=== PATIENT | female | born 1940 | race Caucasian/White ===

== ENCOUNTER 2016-11-28 14:36 | Emergency (ER) ==
[2016-11-28 14:44] VITALS: BP 148/87; TEMP 98.3; BMI 28.3
--- NOTE | 2016-11-28 15:02 | ED.PDOC ---
General ED Provider: Dr. KLAUS BANG JR Chief Complaint: Fall Stated Complaint: out looking at houses with -opened door and was no entry landing--fell into basement--no loc with fall--pain rt lower leg/hip-- both ribs--rt hand and rt cheek--"i have a hole inside my mouth"[ End ]15 [id number] 16 93 148/87 7/10. abrasion to rt lower leg--states "hole in mouth Time Seen by Physician: 15:01 Mode of Arrival: Walk-In Information Source: Patient Exam Limitations: No limitations Primary Care Provider: NORMA TILLMAN Nursing and Triage Documentation Reviewed and Agree: No Review of Systems - Review Of Systems Constitutional: Reports: No symptoms Eyes: Reports: No symptoms Ears, Nose, Mouth, Throat: Reports: Mouth pain Respiratory: Reports: No symptoms Cardiac: Reports: No symptoms GI: Reports: No symptoms : Reports: No symptoms Musculoskeletal: Reports: Joint pain (tender right second mcp, left ant ribs right anterior iliac crest no significant bone tenderness) Skin: Reports: Bruising, Lesions Neurological: Reports: No symptoms Endocrine: Reports: No symptoms Hematologic/Lymphatic: Reports: No symptoms All Other Systems: Other Past Medical History - Past Medical History Previously Healthy: Yes Endocrine: Reports: None Cardiovascular: Reports: None Respiratory: Reports: None Hematological: Reports: None Gastrointestinal: Reports: None Genitourinary: Reports: None Neuro/Psych: Reports: None Musculoskeletal: Reports: None Cancer: Reports: None Last Menstrual Period: menopause - Surgical History General Surgical History: Reports: Tonsillectomy (TONSILLS OUT), Orthopedic ( CARPL TUNNEL BILATERAL). Denies: Hysterectomy (OVARIES REMOVED) - Family History Family History: Reports: Unknown - Social History Smoking Status: Former smoker Hx Substance Use: No Alcohol Screening: None - Immunizations Tetanus Shot up to Date: No (unknown) Physical Exam - Physical Exam Appearance: Well-appearing Pain Distress: Moderate Eyes: HENRY, EOMI, Conjunctiva clear ENT: Ears normal, Epistaxis (resolved with small lac in righ tlateral gianfranco 1cm lac right buccal not bleeding teeth without laxityof teeth or dentures) Neck: Supple Respiratory: Airway patent, Breath sounds clear, Breath sounds equal, Respirations nonlabored Cardiovascular: RRR, Pulses normal, No rub, No murmur GI/: Soft, Nontender, No masses, Bowel sounds normal, No Organomegaly Musculoskeletal: Normal strength, ROM intact (except index mcp), No edema ( edema right index mcp left lateral ankle states no difficulty walking pain on rom inxex finger tender right leg over wide superficial abrasion from above knee toankle tender right anteriro iliac creast without carl on copmpression pelvis or femur ), No calf tenderness Skin: Warm, Dry, Normal color (abrasions righ tleg hip ) Neurological: Sensation intact, Motor intact, Reflexes intact, Cranial nerves intact, Alert, Oriented (tender scalp right occiput) Psychiatric: Affect appropriate, Mood appropriate Critical Care Note - Critical Care Note Total Time (mins): 0 Course - Course Orders, Labs, Meds: Orders Category Date Time Status Wound care [ED WOUND CARE] .ONCE EMERGENCY 11/28/16 15:[address] HEAD W/O CONTRAST Stat RADS 11/28/16 15:15 Completed HAND, RIGHT 3 VIEWS Stat RADS 11/28/16 15:17 Completed Vital Signs: Temp Pulse Resp BP Pulse Ox 11/28/16 14:36 98.3 F 87 16 148/87 H 93 L Departure - Departure Time of Disposition: 16:13 Disposition: HOME SELF-CARE Discharge Problem: Falls, Abrasions of multiple sites, Anterior epistaxis Laceration of oral cavity Qualifiers: Encounter type: initial encounter Qualifier Code: (S01.512A) Laceration without foreign body of oral cavity, initial encounter Maxillary fracture, right side, initial encounter for open fracture Qualifiers: Encounter type: initial encounter Qualifier Code: (S02.40CB) Maxillary fracture , right side, initial encounter for open fracture Metacarpal bone fracture Qualifiers: Encounter type: initial encounter Metacarpal bone: second Fracture type: closed Metacarpal location: neck Fracture alignment: nondisplaced Laterality: right Qualifier Code: (S62.360A) Nondisplaced fracture of neck of second metacarpal bone, right hand, initial encounter for closed fracture Instructions: Abrasion (ED), Laceration Without Closure (ED), Facial Laceration (ED), Facial Fracture (ED), Hand Fracture (ED) Condition: Good Pt referred to PMD for follow-up: Yes Additional Instructions: recheck pmd one week call pmd in morning for referral right hand fracture and right maxillary fracture return if mental changes headache or vomiting bandage abrasions daily until dry and healing tylenol four times a day as needed for pain antihistamine daily to avoid congestion from blood in sinus keflex four times a day -antibiotic Prescriptions: Cephalexin [Keflex] 500 mg PO QID #40 capsule Loratadine [Claritin] 10 mg PO DAILY PRN #30 tablet PRN Reason: Allergy Symptoms Allergies/Adverse Reactions: Allergies No Known Allergies Allergy (Verified 11/28/16 14:46) Home Medications: Ambulatory Orders Cephalexin [Keflex] 500 mg PO QID #40 capsule 11/28/16 Loratadine [Claritin] 10 mg PO DAILY PRN #30 tablet 11/28/16
--- NOTE | 2016-11-28 15:47 | DI ---
EXAM: Three views of the right hand HISTORY: Fall with tenderness of the second metacarpal. COMPARISON: None FINDINGS: There is a mildly angulated fracture of the distal second metacarpal with minimal displace ment. The fracture does not appear to extend into the second MCP joint space. The remaining osseou s structures demonstrate no additional fracture or dislocation. There is degenerative change and na rrowing of the radiocarpal joint and the first CMC joint. IMPRESSION: Mildly displaced and angulated fracture of the distal right second metacarpal. 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
--- NOTE | 2016-11-28 16:07 | CT ---
EXAM: CT head without contrast. HISTORY: Initial presentation for left-sided head trauma due to a fall. COMPARISON: None available. TECHNIQUE: Multiple axial images of the brain were obtained from the skull base through the vertex without intravenous contrast. FINDINGS: There is no intracranial hemorrhage or extraaxial collection. The guthrie-white differentia tion is maintained without evidence for acute large vascular territory infarction. There are areas of periventricular and subcortical white matter low attenuation. The cortical sulci and cerebral ve ntricles are symmetrically enlarged. The basal cisterns are well visualized. There is no hydroceph alus, mass effect, or midline shift. No calvarial fracture is seen. There is a mildly displaced, c omminuted right lateral maxillary sinus wall fracture is large amount of blood present in the right maxillary sinus. There is subcutaneous air in the right infratemporal fossa. Paranasal sinuses are otherwise clear. Globes and intraorbital structures are intact. Atherosclerotic calcifications are present. IMPRESSION: 1. No acute intracranial abnormality. 2. Chronic small vessel ischemic changes and atrophy. 3. Acute right lateral maxillary sinus wall fracture with blood in the right maxillary sinus. Cons ider dedicated CT facial bones for further evaluation.
== END 2016-11-28 16:30 | disposition home or self-care (01) ==
LOC: ED 14:36
DX: S01.512A Laceration without foreign body of oral cavity, initial encounter (principal); S02.40CB Maxillary fracture, right side, initial encounter for open fracture; S62.360A Nondisplaced fracture of neck of second metacarpal bone, right hand, initial encounter for closed fracture; R04.0 Epistaxis; S80.811A Abrasion, right lower leg, initial encounter; S70.211A Abrasion, right hip, initial encounter; S09.90XA Unspecified injury of head, initial encounter; R07.81 Pleurodynia; W17.89XA Other fall from one level to another, initial encounter; Y92.008 Other place in unspecified non-institutional (private) residence as the place of occurrence of the external cause
CPT/HCPCS: 99283

== ENCOUNTER 2016-12-01 10:48 | Outpatient (CLI) | payer OTHER ==
--- NOTE | 2016-12-01 13:42 | CT ---
EXAM: CT chest without contrast. HISTORY: Chest pain. Abdominal pain. Recent fall. Initial presentation. COMPARISON: Chest radiograph 07/26/2016. TECHNIQUE: Multiple axial images of the chest were obtained without intravenous contrast. Images w ere reformatted in the sagittal and coronal planes. FINDINGS: Heart size is normal. There is no pericardial effusion. Atherosclerotic calcifications are present. Ascending aorta measures up to 4.1 cm diameter. Evaluation for lymphadenopathy is fuller ited due to lack of intravenous contrast. Scattered sub centimeter nodules are present in both lungs and the left lung on axial images 11, 24, 33 and 38, and in the right lung on axial images 14, 24, 46 and 49. The largest nodule measures 0. 6 cm in the left upper lobe. Subsegmental atelectasis seen in both lower lobes. No pleural effusio n or pneumothorax identified. Moderate sized hiatal hernia noted. A 4.9 x 4.7 cm left adrenal nodule contains macroscopic fat. 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 Degenerative changes present in the spine. There is a moderate compression deformity of L2 which ap pears old. IMPRESSION: 1. No acute abnormality of the chest. 2. Bilateral micronodules require follow-up chest CT in 3-6 months. 3. Atherosclerosis. Ascending thoracic aorta measures up to 4.1 cm diameter. 4. Moderate hiatal hernia.
--- NOTE | 2016-12-01 13:47 | CT ---
Examination: Noncontrasted CT imaging of the face with axial, sagittal, and coronal recons. Reason for study: Fall with fractures. Comparison: CT examination of the head performed 11/28/2016. FINDINGS: Minimally displaced fracture of the latter and posterior lateral right maxillary sinus wall with an air-fluid level likely hemorrhage. No other facial fractures are seen. There is a moderate amount of air within the subcutaneous soft tissues adjacent to the right maxilla. Attenuation artifact fro m dental amalgam obscures the adjacent bony and soft tissue detail. The frontal, ethmoid, sphenoid, left maxillary, and mastoid air cells are unopacified. The partially imaged calvarium is intact. Impression: 1. Minimally displaced lateral and posterior lateral wall right maxillary sinus fracture with an ai r-fluid level that likely represents hemorrhage. 2. Subcutaneous air is noted within the soft tissues adjacent to the right maxilla and mandible. E valuation in this area is limited secondary to dental amalgam artifact.
== END 2016-12-01 10:49 | disposition home or self-care (01) ==
LOC: RAD 10:48
PROVIDERS: ATTEND Emergency Medicine
DX: S02.40CD Maxillary fracture, right side, subsequent encounter for fracture with routine healing (principal); R07.9 Chest pain, unspecified; W19.XXXD Unspecified fall, subsequent encounter

== ENCOUNTER 2016-12-02 09:22 | Outpatient (CLI) | END 2016-12-02 09:23 | disposition home or self-care (01) | LOC: AMBL 09:22 | PROVIDERS: ATTEND Internal Medicine | DX: R07.89 Other chest pain (principal); S29.9XXD Unspecified injury of thorax, subsequent encounter; W10.9XXD Fall (on) (from) unspecified stairs and steps, subsequent encounter ==

== ENCOUNTER 2017-10-23 09:29 | Outpatient (CLI) | END 2017-10-23 09:30 | disposition home or self-care (01) | LOC: RAD 09:29 | PROVIDERS: ATTEND Internal Medicine | DX: Z12.31 Encounter for screening mammogram for malignant neoplasm of breast (principal) | CPT/HCPCS: 77067 ==

== ENCOUNTER 2017-10-25 16:59 | Outpatient (CLI) | END 2017-10-25 17:00 | disposition home or self-care (01) | LOC: LAB 16:59 | PROVIDERS: ATTEND General Practice | DX: T81.31XD Disruption of external operation (surgical) wound, not elsewhere classified, subsequent encounter (principal) | CPT/HCPCS: 87070; 87186 ==